=== PATIENT | female | born 1995 | race Caucasian/White ===

== ENCOUNTER 2016-10-22 07:30 | Inpatient (IN) | payer OTHER ==
[~2016-10-22] VITALS: Ht 167.6 cm; Wt 99.8 kg
[~2016-10-22 07:30] MED LIST: NO MEDS
[2016-10-22] MEDS ORDERED: PRENATAL VITAMI1 TA2 PO (08:15)
[2016-10-22] MEDS ORDERED: CITRIC ACID/SODIUM CITRATE 30 ML UDC PO SCH (08:15)
[2016-10-22] MEDS ORDERED: LACTATED RINGERS 1,000 ML IV SCH (08:15)
--- NOTE | 2016-10-22 09:11 | NUR ---
PATIENT HAS BEEN SCREENED AND CATEGORIZED LOW NUTRITION RISK. PATIENT WILL BE SEEN WITHIN 7 DAYS OF ADMISSION. 10/28/[address]
[2016-10-22] MEDS ORDERED: ONDANSETRON 4 MG/2 ML VIAL ONE (11:18)
[2016-10-22] MEDS ORDERED: BUPIVACAINE-MPF 0.75% 10 ML VIAL INJ ONE (11:18)
[2016-10-22] MEDS ORDERED: MORPHINE PRES FREE 10 MG/10 ML AMP IV ONE (11:18)
[2016-10-22] MEDS ORDERED: PROPOFOL 200 MG/20 ML VIAL IV ONE (11:18)
[2016-10-22] MEDS ORDERED: OXYTOCIN 10 UNITS/ML VIAL ONE (11:18)
[2016-10-22] MEDS ORDERED: PROPOFOL 1000 MG/100 ML PREMIX 100 ML IV PRN (11:30)
[2016-10-22] MEDS ORDERED: ceFAZolin 1,000 MG VIAL ONE (11:49)
[2016-10-22] MEDS ORDERED: diphenhydrAMINE 50 MG/ML VIAL IVP PRN (12:45)
[2016-10-22] MEDS ORDERED: NALOXONE 0.4 MG/ML VIAL IVP PRN ×2 (12:45)
[2016-10-22] MEDS ORDERED: OXYTOCIN 20 UNITS/LR PREMIX 1,000 ML IV SCH ×2 (12:45→13:42)
[2016-10-22] MEDS ORDERED: KETOROLAC 30 MG/ML VIAL IVP PRN (12:45)
[2016-10-22] MEDS ORDERED: diphenhydrAMINE 50 MG/ML VIAL ONE (13:42)
[2016-10-22] MEDS ORDERED: HYDROmorphone 1 MG/ML AMP IVP PRN (13:45)
[2016-10-22] MEDS ORDERED: MEASLES, MUMPS, AND RUBELLA 1 VIAL SQVAC PRN (13:45)
[2016-10-22] MEDS ORDERED: OXYTOCIN 20 UNITS/LR PREMIX 1,000 ML IV ONE (14:20)
[2016-10-23] MEDS ORDERED: INFLUENZA VIRUS VACCINE QUAD 0.5 ML SYR IMVAC SCH (01:40)
[2016-10-23] MEDS: KETOROLAC 30 MG/ML VIAL IVP PRN ×2 (09:19→20:29)
[2016-10-24] MEDS: IBUPROFEN 600 MG TAB PO PRN ×2 (02:36→17:23)
[2016-10-24] MEDS: SIMETHICONE 80 MG TAB.CHEW PO PRN ×2 (03:22→10:19)
[2016-10-24] MEDS ORDERED: DOCUSATE SODIUM 100 MG GELCAP PO PRN (08:00)
[2016-10-24] MEDS ORDERED: SODIUM PHOSPHATE 118 ML ENEM RC PRN (08:00)
[2016-10-24] MEDS ORDERED: BISACODYL 5 MG TABEC PO PRN (08:00)
[2016-10-24] MEDS ORDERED: oxyCODONE/APAP 5/325 MG 1 TAB TAB PO PRN (08:00)
[2016-10-25] MEDS: IBUPROFEN 600 MG TAB PO PRN ×2 (04:56→16:16)
== END 2016-10-26 14:20 | disposition home or self-care (01) | DRG 540 ==
LOC: MLD 07:30 → MFCC 12:08
PROVIDERS: ADMIT Obstetrics & Gynecology; ATTEND Obstetrics & Gynecology
PROC: 10D00Z1 Extraction of Products of Conception, Low, Open Approach (ICD-10-PCS; principal; 2016-10-22 11:00)
DX: O34.211 Maternal care for low transverse scar from previous cesarean delivery (principal); Z88.1 Allergy status to other antibiotic agents; Z83.3 Family history of diabetes mellitus; Z82.49 Family history of ischemic heart disease and other diseases of the circulatory system; Z37.0 Single live birth; Z3A.39 39 weeks gestation of pregnancy

== ENCOUNTER 2019-02-05 00:48 | Emergency (ER) | payer OTHER ==
[~2019-02-05] VITALS: Ht 167.6 cm; Wt 63.5 kg
[~2019-02-05 00:48] MED LIST changes: +PREN-546 PO
[2019-02-05 00:55] VITALS: BP 131/61
--- NOTE | 2019-02-05 01:00 | NUR ---
PT TAKEN TO BED 11
--- NOTE | 2019-02-05 01:04 | NUR ---
Bee barber in [facility] - 02/05/19 at [address] Jones evaluating patient at bedside.
--- NOTE | 2019-02-05 01:05 | NUR ---
DR LOPEZ AT BEDSIDE.
--- NOTE | 2019-02-05 01:05 | NUR ---
Bee barber in [facility] - 02/05/19 at 0141 by LISANDRA PT MOVED TO BED 12
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
[2019-02-05] MEDS ORDERED: AZITHROMYCIN 250 MG TAB PO ONE (01:30)
[2019-02-05] MEDS ORDERED: cefTRIAXone 1,000 MG in LIDOCAINE MPF 1% - 5 mL VIAL 2.1 ML IM ONE (01:30)
--- NOTE | 2019-02-05 01:30 | NUR ---
PELVIC EXAM PREFORMED BY DR. LOPEZ. SWAB COLLECTED. PATIENT TOLERATED WELL.
[2019-02-05 01:37] LABS: APPEARANCE,URINE CLEAR (CLEAR); BILIRUBIN,URINE NEGATIVE (NEGATIVE); BLOOD, URINE NEGATIVE (NEGATIVE); COLOR,URINE YELLOW (YELLOW); LEUKOCYTE ESTERASE ,URINE TRACE (NEGATIVE); NITRITE, URINE NEGATIVE (NEGATIVE); UGLUCOSE NEGATIVE (NEGATIVE)
[2019-02-05 01:49] LABS: RBC,URINE 0-5 /HPF (0-5)
--- NOTE | 2019-02-05 01:50 | NUR ---
PATIENT TAKEN TO CT IN WHEELCHAIR.
--- NOTE | 2019-02-05 01:58 | NUR ---
PATIENT RETURN FROM CT
[2019-02-05 02:53] VITALS: BP 131/61
[2019-02-07 06:58] LABS: CHLAMYDIA TRACHOMATIS AMP DNA Negative (Negative)
== END 2019-02-05 02:53 | disposition home or self-care (01) ==
LOC: MED 00:48
DX: K59.00 Constipation, unspecified (principal); Z20.2 Contact with and (suspected) exposure to infections with a predominantly sexual mode of transmission; Z88.1 Allergy status to other antibiotic agents; Z79.899 Other long term (current) drug therapy
CPT/HCPCS: 36415; 74176; 81001; 81025; 87086; 87210; 87491; 96372; 99284; J0696; J2001; 87186

== ENCOUNTER 2019-02-26 17:59 | Emergency (ER) | payer OTHER ==
[~2019-02-26] VITALS: Ht 170.2 cm; Wt 68.0 kg
--- NOTE | 2019-02-26 18:03 | NUR ---
CALLED PT NAME IN LOBBY, NO ANSWER
[2019-02-26 18:12] VITALS: BP 134/80
--- NOTE | 2019-02-26 19:45 | NUR ---
NAMED CALLED IN LOBBY AND OUTSIDE, NO ANSWER.
--- NOTE | 2019-02-26 19:56 | NUR ---
Bee barber in [facility] - 02/26/19 at 1956 by LISANDRA PT TAKEN TO BED 2
--- NOTE | 2019-02-26 19:56 | NUR ---
Bee barber in [facility] - 02/26/19 at 2000 by LISANDRA PT TAKEN TO BED 4
--- NOTE | 2019-02-26 20:01 | NUR ---
PT CALLED FOR ED BED, NO ANSWER.
--- NOTE | 2019-02-26 20:06 | NUR ---
PATIENT LEFT WITHOUT BEING SEEN BY DR. TURNER. NO FURTHER CARE PROVIDED FOR PATIENT.
== END 2019-02-26 20:06 | disposition left against medical advice (07) ==
LOC: MED 17:59
DX: R14.3 Flatulence (principal); Z53.21 Procedure and treatment not carried out due to patient leaving prior to being seen by health care provider

== ENCOUNTER 2019-03-13 18:03 | Emergency (ER) | payer OTHER ==
--- NOTE | 2019-03-13 18:19 | NUR ---
CALLED FIRST TIME, PT WAS NOT IN LOBBY OR OUTSIDE, COULD NOT FIND PT AT THIS TIME.
--- NOTE | 2019-03-13 18:30 | NUR ---
CALLED 2ND TIME, COULD NOT FIND PT.
--- NOTE | 2019-03-13 18:45 | NUR ---
CALLED 3ND TIMES, PT IS NOT IN THE LOBBY OR OUTSIDE, PATIENT LEFT WITHOUT TRIAGE AND BEING SEEN BY DR. SIMEON. NO FURTHER CARE PROVIDED FOR PATIENT.
== END 2019-03-13 18:45 | disposition left against medical advice (07) ==
LOC: MED 18:03
DX: R10.2 Pelvic and perineal pain (principal); Z53.21 Procedure and treatment not carried out due to patient leaving prior to being seen by health care provider

== ENCOUNTER 2019-03-13 19:26 | Emergency (ER) | payer OTHER ==
[~2019-03-13] VITALS: Ht 167.6 cm; Wt 68.0 kg
[2019-03-13 19:33] VITALS: BP 127/87
--- NOTE | 2019-03-13 19:35 | NUR ---
TO LOBBY A/W BED AMBULATORY
--- NOTE | 2019-03-13 19:46 | NUR ---
PT TAKEN TO BED 7
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
--- NOTE | 2019-03-13 20:20 | NUR ---
PA MARELY WITH PT
[2019-03-13 20:47] LABS: BASOPHILS # (AUTO) 0.1 K/uL (0.00-0.22); BASOPHILS % (AUTO) 0.8 % (0.0-2.0); EOSINOPHILS # (AUTO) 0.1 K/uL (0-0.4); EOSINOPHILS % (AUTO) 0.8 % (0.0-4.0); HEMATOCRIT 37.5 % (36-48); HEMOGLOBIN 12.6 g/dL (12.0-16.0); LYMPHOCYTES # (AUTO) 1.7 K/uL (2.5-16.5); LYMPHOCYTES % (AUTO) 25.3 % (20.5-51.1); MEAN CORPUSCULAR HEMOGLOBIN 30 pg (27-31); MEAN CORPUSCULAR HGB CONC 34 g/dL (33-37); MONOCYTES # (AUTO) 0.6 K/uL (0.8-1.0); MONOCYTES % (AUTO) 8.8 % (1.7-9.3); NEUTROPHILS # (AUTO) 4.3 K/uL (1.8-7.7); NEUTROPHILS % (AUTO) 64.3 % (42.2-75.2); PLATELET COUNT (AUTO) 200 K/uL (140-450); RED BLOOD CELL COUNT(AUTO) 4.26 MIL/uL (4.20-5.40); RED CELL DISTRIBUTION WIDTH 13.8 % (11.6-13.7); WHITE BLOOD COUNT (AUTO) 6.8 K/uL (4.8-10.8)
[2019-03-13 20:55] LABS: APPEARANCE,URINE HAZY (CLEAR); BILIRUBIN,URINE 1+ (NEGATIVE); BLOOD, URINE NEGATIVE (NEGATIVE); COLOR,URINE ORANGE (YELLOW); LEUKOCYTE ESTERASE ,URINE TRACE (NEGATIVE); NITRITE, URINE NEGATIVE (NEGATIVE); UGLUCOSE NEGATIVE (NEGATIVE)
[2019-03-13 20:59] LABS: ANION GAP 10.9 (8-16); CARBON DIOXIDE 27.1 mmol/L (21-32); CREATININE 0.7 mg/dL (0.6-1.3)
[2019-03-13 20:59] LABS: CALCIUM OXALATE CRYSTALS,UR 50-70 /HPF (None Seen)
[2019-03-13 21:05] LABS: ALBUMIN 3.8 g/dL (3.4-5.0); TOTAL BILIRUBIN 0.6 mg/dL (0.0-1.0)
[2019-03-13] MEDS ORDERED: POTASSIUM CHLORIDE 10 MEQ TABER PO ONE (21:30)
[2019-03-13 21:42] VITALS: BP 136/83
--- NOTE | 2019-03-13 21:43 | NUR ---
Patient discharged with v/s stable. Written and verbal after care instructions given and explained. Patient alert, oriented and verbalized understanding of instructions. Ambulatory with steady gait. All questions addressed prior to discharge. ID band removed. Patient advised to follow up with PMD. Rx of NITROFURANTOIN given. Patient educated on indication of medication including possible reaction and side effects. Opportunity to ask questions provided and answered.
== END 2019-03-13 21:43 | disposition home or self-care (01) ==
LOC: MED 19:26
DX: K62.5 Hemorrhage of anus and rectum (principal); N39.0 Urinary tract infection, site not specified; E87.6 Hypokalemia; G40.909 Epilepsy, unspecified, not intractable, without status epilepticus; Z79.899 Other long term (current) drug therapy; Z88.1 Allergy status to other antibiotic agents
CPT/HCPCS: 36415; 80053; 81001; 81025; 83690; 85025; 87086; 99283